=== PATIENT | male | born 1945 | race Caucasian/White ===

== ENCOUNTER 2019-04-29 22:13 | Inpatient (IN) | payer MEDICARE ==
[~2019-04-29] VITALS: Ht 172.7 cm; Wt 63.8 kg
[~2019-04-29 22:13] MED LIST: ACET325T33 PO; DOCU-144 PO; ERTA1VIA3 IM; IPRA3AMP29 HHN; LACT1CAP28 PO; LOPE-123 PO; Lomotil PO; MAGN400T27 PO; MULTI PO; NEUTPHOS PO; Nystatin TOPICAL; ONDA4TAB95 PO; PANT20TA3 PO; POTA20PA23 PO; Simethicone PO; [UNRECOGNIZED DRUG - OTHER] PO
[2019-04-29] MEDS ORDERED: SOD CHLORIDE 0.9% 500 ML IV STA (22:19)
[2019-04-29] MEDS ORDERED: ONDANSETRON 4 MG INJ IV PRN (23:30)
[2019-04-29] MEDS ORDERED: ACETAMINOPHEN 325 MG TAB PO PRN (23:30)
[2019-04-29] MEDS ORDERED: VANCOMYCIN 1 GM (PMX) 250 ML IVPB STA (23:49)
[2019-04-29] MEDS ORDERED: CEFEPIME 1GM/50 ML (PMX) 50 ML IVPB STA (23:49)
[2019-04-30 04:30] VITALS: Ht 172.7 cm; Wt 63.8 kg
[2019-04-30] MEDS ORDERED: ONDANSETRON 4 MG INJ IV PRN (05:00)
[2019-04-30] MEDS ORDERED: ALBUTEROL/IPRATROPIUM (NEB) 3 ML AMP HHN PRN (05:00)
[2019-04-30] MEDS ORDERED: ACETAMINOPHEN 325 MG TAB PO PRN (05:00)
[2019-04-30] MEDS ORDERED: NACL 0.9% 3 ML SYG IV SCH (05:00)
[2019-04-30] MEDS: PANTOPRAZOLE (EC) 40 MG TAB PO SCH (06:02)
[2019-04-30 06:30] VITALS: BP 167/79; PULSE 89; RESP 18
[2019-04-30 07:39] VITALS: BP 146/69; PULSE 65; RESP 20
[2019-04-30] MEDS ORDERED: CEFTRIAXONE 1 GM/50 ML (PMX) 50 ML IVPB SCH (09:30)
[2019-04-30 11:23] VITALS: BP 143/71; PULSE 73; RESP 20
[2019-04-30 15:54] VITALS: BP 132/63; PULSE 76; RESP 20
[2019-04-30 20:00] VITALS: BP 151/71; PULSE 87; RESP 18
[2019-04-30] MEDS: CEFEPIME 1GM/50 ML (PMX) 50 ML IVPB SCH ×3 (20:39→22:00)
[2019-04-30] MEDS ORDERED: CEFEPIME 1GM/50 ML (PMX) 50 ML IVPB SCH (21:00)
[2019-05-01] VITALS (7 sets, daily range): BP systolic 108–148; BP diastolic 58–76; PULSE 70–96; RESP 17–19
[2019-05-01] MEDS: PANTOPRAZOLE (EC) 40 MG TAB PO SCH (05:33)
[2019-05-01] MEDS: CEFEPIME 1GM/50 ML (PMX) 50 ML IVPB SCH ×3 (05:33→21:40)
[2019-05-01] MEDS: LACTOBACILLUS RHAMNOSUS CAP PO SCH (21:40)
[2019-05-02] MEDS: CEFEPIME 1GM/50 ML (PMX) 50 ML IVPB SCH ×2 (03:37→05:18)
[2019-05-02 04:33] VITALS: BP 118/54; PULSE 77; RESP 18
[2019-05-02] MEDS: PANTOPRAZOLE (EC) 40 MG TAB PO SCH (05:38)
[2019-05-02 07:39] VITALS: BP 117/72; PULSE 85; RESP 17
[2019-05-02] MEDS: LACTOBACILLUS RHAMNOSUS CAP PO SCH ×2 (09:18→20:28)
[2019-05-02 11:31] VITALS: BP 107/57; PULSE 96; RESP 17
[2019-05-02] MEDS: MEROPENEM 1 GM/50ML(PMX) 50 ML IVPB SCH ×2 (12:23→20:28)
[2019-05-02] MEDS: NEUTRA-PHOS 250 MG PACKET PO SCH ×2 (14:45→20:28)
[2019-05-02 15:39] VITALS: BP 157/86; PULSE 90; RESP 17
[2019-05-02 20:00] VITALS: BP 144/71; PULSE 91; RESP 20
[2019-05-03] VITALS: BP 150/70; PULSE 96; RESP 20
[2019-05-03 04:00] VITALS: BP 157/85; PULSE 97; RESP 20
[2019-05-03] MEDS: PANTOPRAZOLE (EC) 40 MG TAB PO SCH (05:55)
[2019-05-03 07:12] VITALS: BP 160/78; PULSE 95; RESP 19
[2019-05-03] MEDS: MEROPENEM 1 GM/50ML(PMX) 50 ML IVPB SCH ×2 (09:06→20:24)
[2019-05-03] MEDS: LACTOBACILLUS RHAMNOSUS CAP PO SCH ×2 (09:06→20:24)
[2019-05-03] MEDS: NEUTRA-PHOS 250 MG PACKET PO SCH ×2 (09:06→20:24)
[2019-05-03 12:30] VITALS: BP 145/67; PULSE 89; RESP 20
[2019-05-03 16:00] VITALS: BP 140/65; PULSE 78; RESP 19
[2019-05-03] MEDS: POTASSIUM CHLORIDE 20 MEQ POWDER FOR ORAL SOLN PO SCH (18:35)
[2019-05-03 19:58] VITALS: BP 142/85; PULSE 93; RESP 20
[2019-05-04] VITALS: BP 156/81; PULSE 97; RESP 20
[2019-05-04 04:00] VITALS: BP 152/86; PULSE 101; RESP 20
[2019-05-04] MEDS: PANTOPRAZOLE (EC) 40 MG TAB PO SCH (05:40)
[2019-05-04 07:17] VITALS: BP 164/85; PULSE 86; RESP 18
[2019-05-04] MEDS: NEUTRA-PHOS 250 MG PACKET PO SCH ×2 (08:18→20:18)
[2019-05-04] MEDS: MEROPENEM 1 GM/50ML(PMX) 50 ML IVPB SCH ×2 (08:18→20:17)
[2019-05-04] MEDS: LACTOBACILLUS RHAMNOSUS CAP PO SCH ×2 (08:21→20:18)
[2019-05-04] MEDS: POTASSIUM CHLORIDE 20 MEQ POWDER FOR ORAL SOLN PO SCH (09:56)
[2019-05-04 11:18] VITALS: BP 146/65; PULSE 85; RESP 20
[2019-05-04 15:33] VITALS: BP 150/75; PULSE 91; RESP 20
[2019-05-04] MEDS ORDERED: SOD CHLORIDE 0.9% 250 ML IV* ONE (17:18)
[2019-05-04 19:28] VITALS: BP 159/74; PULSE 93; RESP 18
[2019-05-04] MEDS ORDERED: hydrALAzine 20 MG INJ IV PRN (22:30)
[2019-05-05] VITALS: BP 124/69; PULSE 88; RESP 18
[2019-05-05 04:29] VITALS: BP 128/71; PULSE 89; RESP 18
[2019-05-05] MEDS: PANTOPRAZOLE (EC) 40 MG TAB PO SCH (05:33)
[2019-05-05 07:35] VITALS: BP 120/78; RESP 17
[2019-05-05] MEDS: MEROPENEM 1 GM/50ML(PMX) 50 ML IVPB SCH (08:35)
[2019-05-05] MEDS: NEUTRA-PHOS 250 MG PACKET PO SCH (08:35)
[2019-05-05] MEDS: LACTOBACILLUS RHAMNOSUS CAP PO SCH (08:35)
[2019-05-05] MEDS: POTASSIUM CHLORIDE 20 MEQ POWDER FOR ORAL SOLN PO SCH (08:36)
[2019-05-05 11:20] VITALS: BP 121/73; PULSE 78; RESP 17
[2019-05-05] MEDS ORDERED: MAGNESIUM OXIDE 400 MG TAB PO SCH (15:30)
[2019-05-05 16:03] VITALS: BP 119/66; PULSE 85; RESP 19
[2019-05-08] MEDS ORDERED: DOCUSATE SODIUM 100 MG CAP PO SCH (09:00)
== END 2019-05-05 21:40 | DRG 872 ==
LOC: E/R 22:13 → TEL 23:35
PROVIDERS: ADMIT Internal Medicine; ATTEND Internal Medicine
PROC: 30253R1 (ICD-10-PCS; principal; 2019-04-30)
PROC: 30253N1 (ICD-10-PCS; 2019-05-04)
DX: A41.51 Sepsis due to Escherichia coli [E. coli] (principal); C78.7 Secondary malignant neoplasm of liver and intrahepatic bile duct; C78.00 Secondary malignant neoplasm of unspecified lung; D61.818 Other pancytopenia; N30.00 Acute cystitis without hematuria; C67.9 Malignant neoplasm of bladder, unspecified; I10 Essential (primary) hypertension; I48.91 Unspecified atrial fibrillation; I25.10 Atherosclerotic heart disease of native coronary artery without angina pectoris; I25.2 Old myocardial infarction; N41.9 Inflammatory disease of prostate, unspecified; R62.7 Adult failure to thrive; Z68.21 Body mass index [BMI] 21.0-21.9, adult; Z93.6 Other artificial openings of urinary tract status; Z95.5 Presence of coronary angioplasty implant and graft; Z85.46 Personal history of malignant neoplasm of prostate; Z92.21 Personal history of antineoplastic chemotherapy; Z87.891 Personal history of nicotine dependence
CPT/HCPCS: 36430; 71045; 76700; 80048; 80053; 80061; 81001; 82728; 83036; 83540; 83735; 84100; 84443; 84484; 85025; 85610; 85730; 86022; 86038; 86644; 86850; 86900; 86901; 86920; 86945; 87086; 93005; 96374; 97162; J0360; J0692; J0696; J2185; J3370; J7040; P9016; P9035